=== PATIENT | male | born 1980 | race Caucasian/White ===

== ENCOUNTER 2020-12-14 22:17 | Emergency (ER) | payer SELFPAY ==
[2020-12-14 22:47] VITALS: PULSE 80; RESP 16; TEMP 36.4; O2SAT 96; BMI 31.2
--- NOTE | 2020-12-14 23:58 | W.ED.EXTPRO ---
HPI - Extremity Problem General: Chief complaint: Extremity Problem,Nontraumatic Stated complaint: L ARM NUMB Time Seen by Provider: 12/14/20 23:23 History of Present Illness: HPI Narrative: 40-year-old male presenting with left arm pain and swelling. He is an IV drug user, and use that arm to inject 2 days ago. Since that time, he has noticed increasing pain to the forearm, and wrist on the left. He says that it is warm, swollen, and painful. He has got shooting pains with numbness and tingling at times. No fever. No chills. No shortness of breath or chest discomfort. MD Complaint: extremity pain Onset (ago): hour(s) Pain Consistency: constant Location: left Quality: burning and stabbing Radiation: proximal Relieving factors: nothing Exacerbating factors: nothing Associated symptoms: Deny arthralgias, chest pain, fever(s), myalgias or short of breath Context: other Review of Systems Const: Denies: fever(s) Card: Denies: chest pain Resp: Denies: dyspnea GI: Denies: vomiting Neuro: Reports: numbness in extremities (Describes as paresthesias that come and go to the left forearm); Denies: headache(s) or confusion Physical Exam Const: COMMON NORMALS: patient oriented x3 GENERAL APPEARANCE: anxious and other (Fidgety) Chest: COMMONS NORMALS: normal inspection of the chest Resp: COMMON NORMALS: normal respiratory effort, No use of accessory muscles and clear to auscultation bilaterally AUSCULTATION: clear to auscultation bilaterally Cardio: COMMON NORMALS: regular rate, regular rhythm and No murmurs present (Cardio) RATE: regular rate RHYTHM: regular rhythm GI: COMMON NORMALS: Normal to inspection, nondistended, normoactive bowel sounds present and Soft to palpation PALPATION: Yes Soft to palpation Extremity: NARRATIVE EXTREMITY EXAM: Exam the left upper extremity reveals subjective tenderness to the left forearm and wrist. There is minimal swelling compared to the right. There is warmth. There is no redness. Range of motion of the elbow and wrist is normal. There are no signs of compartment syndrome, as the patient can actively and passively extend the fingers fully without excruciating pain. The forearm does not appear tight. station is intact Neuro: COMMON NORMALS: patient oriented x3 Course Vital Signs: Vital signs: Vital Signs Temperature 98 F 12/15/20 01:01 Pulse Rate 80 12/15/20 01:01 Respiratory Rate 16 12/15/20 01:01 Blood Pressure 146/80 12/15/20 01:01 Pulse Oximetry 99 12/15/20 01:01 MDM - Extremity (Nontraumatic) MDM Narrative: Medical decision making narrative: WBC is 6.4. CRP is negative. Hemoglobin 15. D-dimer is nondetectable in terms of an upper extremity clot. His exam is not impressive for compartment syndrome. We will treat for superficial cellulitis/thrombophlebitis Lab Data: Labs: Lab Results 12/15/20 12/15/20 12/15/20 Range/Units 00:02 00:02 00:02 WBC 6.4 (4.0-10.0) 10^3/ uL RBC 5.41 H (4.1-5.3) 10^6/u L Hgb 15.2 (11.7-16.6) g/dL Hct 44.5 (42.0-52.0) % MCV 82.3 (80-94) fL MCH 28.1 (28.0-34.0) pg MCHC 34.2 (30.0-36.0) g/dL RDW 12.5 (12.1-15.1) % Plt Count 188 (130-400) 10^3/c mm MPV 11.4 H (7.4-10.4) fL Neut % (Auto) 47.8 % Lymph % (Auto) 36.8 % [place] % (Auto) 10.1 % Eos % (Auto) 4.0 % Baso % (Auto) 0.8 % Neut # (Auto) 3.08 (1.8-7.7) 10^3/u L Lymph # (Auto) 2.4 (0.8-4.8) 10^3/u L [place] # (Auto) 0.7 (0.2-0.9) 10^3/u L Eos # (Auto) 0.3 (0.0-0.8) 10^3/u L Baso # (Auto) 0.1 (0.0-0.1) 10^3/u L Nucleated RBC % (a uto) 0 % Nucleated RBCs # 0.0 /100WBC ESR 5 (0-10) mm/hr D-Dimer <= 0.27 (0-0.59) ug/mIFE U Sodium (136-145) mmol/L Potassium (3.5-5.1) mmol/L Chloride (98-107) mmol/L Carbon Dioxide (22-29) mmol/L Anion Gap (5-19) BUN (6-20) mg/dL Creatinine (0.7-1.2) mg/dL GFR Calculation (90-130) mL/min Glucose (65-115) mg/dL Calculated Osmolal ity (285-295) mOsm/k g Lactate (0.5-2.2) mmol/L Calcium (8.5-10.5) mg/dL Total Bilirubin (0.15-1.2) mg/dL AST (0-40) U/L ALT (0-41) U/L Alkaline Phosphata se (40-130) IU/L Creatine Kinase (39-308) U/L C-Reactive Protein (0.0-4.9) mg/L Total Protein (6.6-8.7) g/dL Albumin (3.5-5.2) g/dL Globulin (1.3-4.6) g/dL 12/15/20 12/15/20 Range/Units 00:02 00:02 WBC (4.0-10.0) 10^3/ uL RBC (4.1-5.3) 10^6/u L Hgb (11.7-16.6) g/dL Hct (42.0-52.0) % MCV (80-94) fL MCH (28.0-34.0) pg MCHC (30.0-36.0) g/dL RDW (12.1-15.1) % Plt Count (130-400) 10^3/c mm MPV (7.4-10.4) fL Neut % (Auto) % Lymph % (Auto) % [place] % (Auto) % Eos % (Auto) % Baso % (Auto) % Neut # (Auto) (1.8-7.7) 10^3/u L Lymph # (Auto) (0.8-4.8) 10^3/u L [place] # (Auto) (0.2-0.9) 10^3/u L Eos # (Auto) (0.0-0.8) 10^3/u L Baso # (Auto) (0.0-0.1) 10^3/u L Nucleated RBC % (a uto) % Nucleated RBCs # /100WBC ESR (0-10) mm/hr D-Dimer (0-0.59) ug/mIFE U Sodium 141 (136-145) mmol/L Potassium 3.5 (3.5-5.1) mmol/L Chloride 107 (98-107) mmol/L Carbon Dioxide 24 (22-29) mmol/L Anion Gap 13.5 (5-19) BUN 8 (6-20) mg/dL Creatinine 0.7 (0.7-1.2) mg/dL GFR Calculation 125.5 (90-130) mL/min Glucose 105 (65-115) mg/dL Calculated Osmolal ity 291 (285-295) mOsm/k g Lactate 1.5 (0.5-2.2) mmol/L Calcium 8.3 L (8.5-10.5) mg/dL Total Bilirubin 0.6 (0.15-1.2) mg/dL AST 106 H (0-40) U/L ALT 246 H (0-41) U/L Alkaline Phosphata se 90 (40-130) IU/L Creatine Kinase 340 H* (39-308) U/L C-Reactive Protein 3.5 (0.0-4.9) mg/L Total Protein 6.7 (6.6-8.7) g/dL Albumin 4.3 (3.5-5.2) g/dL Globulin 2.4 (1.3-4.6) g/dL Discharge Plan Discharge Patient Disposition: Home Clinical Impression: Superficial thrombophlebitis Qualifiers: Superficial thrombophlebitis-Involved body area: upper extremity Laterality: left Qualified Code(s): I80.8 - Phlebitis and thrombophlebitis of other sites Cellulitis Qualifiers: Site of cellulitis: extremity Site of cellulitis of extremity: upper extremity Laterality: left Qualified Code(s): L03.114 - Cellulitis of left upper limb Condition: Stable Prescriptions: New aspirin 325 mg tablet 325 mg PO DAILY Qty: 10 RF: 0 doxycycline hyclate 100 mg capsule 100 mg PO BID 10 Days Qty: 20 RF: 0 Discharge Orders: Discharge ED (Routine); Ordered 12/15/20 Ordered By: Daryl Healy Patient Instructions: Cellulitis (ED), Superficial Thrombophlebitis (ED) Activity Restrictions/Additional Instructions: Avoid using that arm to inject. Return for fever greater than 100, worsening pain or swelling, excruciating pain with straightening your fingers, streaking redness up your arm, other concerning symptoms Coding Level of Care Code ED [employer] Supervisor for Luis Angel Fwd Exam Detailed
[2020-12-15] MEDS: ketorolac 30 mg/mL INJ IVP (00:03)
[2020-12-15] MEDS: haloperidol inj 5 mg/mL INJ 1 mL IVP (00:04)
[2020-12-15 00:14] LABS: Basophils # 0.1 10^3/uL (0.0-0.1); Basophils % 0.8 %; Eosinophils # 0.3 10^3/uL (0.0-0.8); Hematocrit 44.5 % (42.0-52.0); Hemoglobin 15.2 g/dL (11.7-16.6); Lymphocytes # 2.4 10^3/uL (0.8-4.8); Lymphocytes % 36.8 %; Mean Corpuscular HGB Conc 34.2 g/dL (30.0-36.0); Mean Corpuscular Hemoglobin 28.1 pg (28.0-34.0); Mean Corpuscular Volume 82.3 fL (80-94); Mean Platelet Volume 11.4 fL (7.4-10.4); Monocytes # 0.7 10^3/uL (0.2-0.9); Monocytes % 10.1 %; Neutrophils # 3.08 10^3/uL (1.8-7.7); Neutrophils % 47.8 %; Nucleated Red Blood Cells % 0 %; Platelet Count 188 10^3/cmm (130-400); Red Blood Count 5.41 10^6/uL (4.1-5.3); Red Cell Distribution Width 12.5 % (12.1-15.1); White Blood Count 6.4 10^3/uL (4.0-10.0)
[2020-12-15 00:29] LABS: Alanine Aminotransferase 246 U/L (0-41); Albumin Level 4.3 g/dL (3.5-5.2); Alkaline Phosphatase 90 IU/L (40-130); Anion Gap 13.5 (5-19); Aspartate Amino Transferase 106 U/L (0-40); Blood Urea Nitrogen 8 mg/dL (6-20); C Reactive Protein 3.5 mg/L (0.0-4.9); Calcium 8.3 mg/dL (8.5-10.5); Carbon Dioxide 24 mmol/L (22-29); Chloride 107 mmol/L (98-107); Globulin 2.4 g/dL (1.3-4.6); Glomerular Filtration Rate 125.5 mL/min (90-130); Glucose 105 mg/dL (65-115); Lactate (Lactic Acid level) 1.5 mmol/L (0.5-2.2); Osmolality Calculated 291 mOsm/kg (285-295); Potassium 3.5 mmol/L (3.5-5.1); Sodium 141 mmol/L (136-145); Total Bilirubin 0.6 mg/dL (0.15-1.2); Total Protein 6.7 g/dL (6.6-8.7)
[2020-12-15 00:32] LABS: D Dimer <= 0.27 ug/mIFEU (0-0.59)
[2020-12-15 00:39] LABS: Creatine Phosphokinase 340 U/L (39-308)
[2020-12-15 00:57] LABS: Erythrocyte Sedimentation Rate 5 mm/hr (0-10)
[2020-12-15] MEDS: doxycycline 100 mg Tablet PO (00:57)
[2020-12-15] MEDS: dexamethasone 4 mg/mL INJ 8 MG IVP (00:57)
[2020-12-15 01:01] VITALS: BP 146/80; PULSE 80; RESP 16; TEMP 36.6; O2SAT 99
== END 2020-12-15 01:06 | disposition home or self-care (01) ==
PROVIDERS: Emergency Provider Emergency Medicine
DX: I80.8 Phlebitis and thrombophlebitis of other sites (principal); L03.114 Cellulitis of left upper limb
CPT/HCPCS: 80053; 82550; 83605; 85025; 85378; 85651; 86140; 96374; 96375; 99283; J1100; J1630; J1885

== ENCOUNTER 2022-11-21 15:26 | Emergency (ER) | payer MEDICAID, SELFPAY ==
[2022-11-21 15:35] VITALS: BMI 27.5
[2022-11-21 15:44] VITALS: BP 110/70; PULSE 137; RESP 20; TEMP 35.9; O2SAT 97
--- NOTE | 2022-11-21 16:20 | XRR_ITS ---
PROCEDURE INFORMATION: Exam: XR Abdomen Exam date and time: 11/21/2022 4:26 PM Age: 42 years old Clinical indication: Abdominal pain; Localized; Left upper quadrant (luq); Additional info: Luq abd pain TECHNIQUE: Imaging protocol: Radiologic exam of the abdomen. Views: Frontal supine view of the abdomen. 1 View. COMPARISON: No relevant prior studies available. FINDINGS: Gastrointestinal tract: Normal. No bowel dilation. Bones/joints: Unremarkable. XR/XR abdomen 1V* [id number] IMPRESSION: No acute findings.
--- NOTE | 2022-11-21 16:20 | XRR_ITS ---
PROCEDURE INFORMATION: Exam: XR Chest Exam date and time: 11/21/2022 4:26 PM Age: 42 years old Clinical indication: Pain; Left-sided; Additional info: Left lower lung pain TECHNIQUE: Imaging protocol: Radiologic exam of the chest. Views: 1 view. COMPARISON: No relevant prior studies available. FINDINGS: Lungs: Unremarkable. No consolidation. Pleural spaces: Unremarkable. No pleural effusion. No pneumothorax. Heart/Mediastinum: Unremarkable. No cardiomegaly. Bones/joints: Unremarkable. XR/XR chest 1V portable [id number] IMPRESSION: No acute findings.
[2022-11-21 16:31] LABS: Basophils % 0.2 %; Eosinophils % 0.1 %; Hematocrit 39.7 % (42.0-52.0); Hemoglobin 13.9 g/dL (11.7-16.6); Lymphocytes # 0.6 10^3/uL (0.8-4.8); Mean Corpuscular Hemoglobin 29.6 pg (28.0-34.0); Mean Corpuscular Volume 84.6 fl (80-94); Mean Platelet Volume 11.8 fL (7.4-10.4); Monocytes % 7.2 %; Neutrophils # 12.37 10^3/uL (1.8-7.7); Neutrophils % 87.9 %; Nucleated Red Blood Cells % 0 %; Platelet Count 144 10^3/cmm (130-400); Red Blood Count 4.69 10^6/uL (4.1-5.3); Red Cell Distribution Width 12.6 % (12.1-15.1); White Blood Count 14.1 10^3/uL (4.0-10.0)
[2022-11-21] MEDS: sodium chloride 0.9% 1,000 ML 999 ML IV ×2 (16:43→17:46)
[2022-11-21 16:45] LABS: Alanine Aminotransferase 84 U/L (0-41); Alkaline Phosphatase 57 U/L (40-130); Anion Gap 16.5 (5-19); Aspartate Amino Transferase 38 U/L (0-40); Blood Urea Nitrogen 24 mg/dL (6-20); Calcium 8.2 mg/dL (8.5-10.5); Carbon Dioxide 20 mmol/L (22-29); Chloride 91 mmol/L (98-107); Globulin 2.5 g/dL (1.3-4.6); Glomerular Filtration Rate 82.3 mL/min (90-130); Glucose 488 mg/dL (65-115); Lipase 23 U/L (13-60); Magnesium 1.1 mg/dL (1.7-2.3); Osmolality Calculated 284 mOsm/kg (285-295); Potassium 3.5 mmol/L (3.5-5.1); Sodium 124 mmol/L (136-145); Total Bilirubin 2.4 mg/dL (0.15-1.2); Total Protein 6.5 g/dL (6.6-8.7)
--- NOTE | 2022-11-21 16:54 | W.ED.ABDPA2 ---
Documented by User: Dev Rossi DO 11/21/22 16:58 HPI - Abdominal Pain General: Chief Complaint: Abdominal Pain Stated Complaint: LEFT UPPER ABD PAIN Time Seen by Provider: 11/21/22 15:55 History of Present Illness: Patient presents to the ER with complaints of left upper quadrant abdominal pain that radiates into his back. Patient is pressured fast speech he is tachypneic and breathing he is constantly fidgeting and he admits to meth use 24 hours ago. MD elicited complaint: abdominal pain Pertinent past history: other (Admitted meth user) Onset (ago): hour(s) Pain Consistency: constant Location: LUQ Severity: mild Quality: aching Radiation: L flank Migration to: no migration Exacerbating factors: nothing Relieving factors: nothing Associated Symptoms: Denies chills, diarrhea, dysuria, fever(s), nausea and vomiting Review of Systems General: Reports: 10 or more systems reviewed and unremarkable except in HPI and below Const: Denies: fever(s) or chills Eyes: Denies: change in vision or photophobia ENMT: Denies: throat pain or odynophagia Card: Denies: chest pain, palpitations or irregular heart rhythm Resp: Denies: dyspnea, productive cough or non-productive cough GI: Reports: abdominal pain; Denies: nausea, vomiting or diarrhea : Reports: flank pain; Denies: difficulty urinating or dysuria Musc: Denies: neck pain Skin/Breast: Denies: rash or pruritus Physical Exam Const: COMMON NORMALS: no acute distress, average body habitus, patient oriented x3, no limitations, healthy appearing, alert and well nourished HENMT: COMMON NORMALS: normocephalic, atraumatic, hearing grossly normal bilaterally, external ears normal, Normal external nose present and moist oral mucous membranes HEAD & SCALP: normocephalic and atraumatic NOSE: Normal external nose present EXTERNAL EAR: Yes external ears normal Eye: COMMON NORMALS: Equal, round and reactive pupils present, EOMs intact bilaterally, conjunctivae normal and no scleral icterus CONJUNCTIVA: Yes conjunctivae normal PUPIL: Yes Equal, round and reactive pupils present Neck/C-Spine: COMMON NORMALS: full ROM, no lymphadenopathy, supple, no meningeal signs, no JVD and Thyroid normal THYROID: Thyroid normal Lymph: LYMPHATIC: no lymphadenopathy noted Chest: COMMONS NORMALS: normal inspection of the chest and normal palpation of entire chest wall Resp: COMMON NORMALS: normal respiratory effort, No retractions, No use of accessory muscles and clear to auscultation bilaterally AUSCULTATION: clear to auscultation bilaterally Cardio: COMMON NORMALS: no JVD, regular rate, regular rhythm, S1 normal heart sound present, S2 normal heart sound present, No gallops present (Cardio), No clicks present (Cardio) and No murmurs present (Cardio) RATE: regular rate RHYTHM: regular rhythm HEART SOUNDS: S1 normal heart sound present and S2 normal heart sound present GI: COMMON NORMALS: Normal to inspection, nondistended, normoactive bowel sounds present, Soft to palpation, non-tender, No hepatosplenomegaly present and no masses PALPATION: Yes Soft to palpation and Yes No hepatosplenomegaly present : COMMON NORMALS: Yes no CVA tenderness BLADDER/KIDNEY EXAM: Yes no CVA tenderness Back/Pelvis: COMMON NORMALS: no CVA tenderness Neuro: COMMON NORMALS: patient oriented x3 SENSORIUM/ORIENTATION: Yes alert MENINGEAL SIGNS: Yes no meningeal signs Course Vital Signs: Vital signs: Vital Signs Temperature 96.6 F L 11/21/22 15:44 Pulse Rate 137 H 11/21/22 15:44 Respiratory Rate 20 H 11/21/22 15:44 Blood Pressure 110/70 11/21/22 15:44 Pulse Oximetry 97 11/21/22 15:44 Oxygen Delivery Me thod Room Air 11/21/22 15:44 MDM - Abdominal Pain Differential Diagnosis Likely abdominal pain; Unlikely acute appendicitis, constipation, diverticulitis, pancreatitis or small bowel obstruction Medical Records I reviewed the patient's medical records. Lab Data I reviewed the patient's lab results. 11/21/22 16:03 11/21/22 16:03 Labs/Radiology: Radiology Impressions Abdomen X-Ray 11/21/22 16:20 IMPRESSION: No acute findings. Chest X-Ray 11/21/22 16:20 IMPRESSION: No acute findings. Abdomen/Pelvis CT 11/21/22 17:04 IMPRESSION: 1. Left lower lobe pneumonia. 2. Hepatomegaly no focal hepatic lesions. 3. Otherwise negative examination Laboratory Results WBC 14.1 10^3/uL (4.0-10.0) H 11/21/22 16:03 RBC 4.69 10^6/uL (4.1-5.3) 11/21/22 16:03 Hgb 13.9 g/dL (11.7-16.6) 11/21/22 16:03 Hct 39.7 % (42.0-52.0) L 11/21/22 16:03 MCV 84.6 fl (80-94) 11/21/22 16:03 MCH 29.6 pg (28.0-34.0) 11/21/22 16:03 MCHC 35.0 g/dL (30.0-36.0) 11/21/22 16:03 RDW 12.6 % (12.1-15.1) 11/21/22 16:03 Plt Count 144 10^3/cmm (130-400) 11/21/22 16:03 MPV 11.8 fL (7.4-10.4) H 11/21/22 16:03 Neut % (Auto) 87.9 % 11/21/22 16:03 Lymph % (Auto) 4.0 % 11/21/22 16:03 [place] % (Auto) 7.2 % 11/21/22 16:03 Eos % (Auto) 0.1 % 11/21/22 16:03 Baso % (Auto) 0.2 % 11/21/22 16:03 Neut # (Auto) 12.37 10^3/uL (1.8-7.7) H 11/21/22 16:03 Lymph # (Auto) 0.6 10^3/uL (0.8-4.8) L 11/21/22 16:03 [place] # (Auto) 1.0 10^3/uL (0.2-0.9) H 11/21/22 16:03 Eos # (Auto) 0.0 10^3/uL (0.0-0.8) 11/21/22 16:03 Baso # (Auto) 0.0 10^3/uL (0.0-0.1) 11/21/22 16:03 Nucleated RBC % (auto) 0 % 11/21/22 16:03 Nucleated RBCs # 0.0 /100WBC 11/21/22 16:03 Sodium 124 mmol/L (136-145) L 11/21/22 16:03 Potassium 3.5 mmol/L (3.5-5.1) 11/21/22 16:03 Chloride 91 mmol/L (98-107) L 11/21/22 16:03 Carbon Dioxide 20 mmol/L (22-29) L 11/21/22 16:03 Anion Gap 16.5 (5-19) 11/21/22 16:03 BUN 24 mg/dL (6-20) H 11/21/22 16:03 Creatinine 1.0 mg/dL (0.7-1.2) 11/21/22 16:03 GFR Calculation 82.3 mL/min (90-130) L 11/21/22 16:03 Glucose 488 mg/dL (65-115) H 11/21/22 16:03 POC Glucose 289 mg/dL (70-110) H 11/21/22 18:40 Calculated Osmolality 284 mOsm/kg (285-295) L 11/21/22 16:03 Calcium 8.2 mg/dL (8.5-10.5) L 11/21/22 16:03 Magnesium 1.1 mg/dL (1.7-2.3) L 11/21/22 16:03 Total Bilirubin 2.4 mg/dL (0.15-1.2) H 11/21/22 16:03 AST 38 U/L (0-40) 11/21/22 16:03 ALT 84 U/L (0-41) H 11/21/22 16:03 Alkaline Phosphatase 57 U/L (40-130) 11/21/22 16:03 Total Protein 6.5 g/dL (6.6-8.7) L 11/21/22 16:03 Albumin 4.0 g/dL (3.5-5.2) 11/21/22 16:03 Globulin 2.5 g/dL (1.3-4.6) 11/21/22 16:03 Lipase 23 U/L (13-60) 11/21/22 16:03 Discharge Plan Discharge Patient Disposition: Home Clinical Impression: Acute hyperglycemia Pneumonia Qualifiers: Pneumonia type: due to unspecified organism Laterality: left Lung location: lower lobe of lung Qualified Code(s): J18.9 - Pneumonia, unspecified organism Condition: Stable Prescriptions: New azithromycin 250 mg tablet See Rx Instructions .ROUTE .COMPLEX Qty: 6 0RF Rx Instructions: For 250 mg dose pack: take 500 mg today (day 1), then 250 mg for 4 days (days 2-5) cefdinir 300 mg capsule 300 mg PO BID 7 Days Qty: 14 0RF glipizide 10 mg tablet 10 mg PO DAILY Qty: 30 0RF ketorolac 10 mg tablet 10 mg PO TID PRN (Reason: pain) Qty: 10 0RF No Action clindamycin HCl 300 mg capsule 600 mg PO QID 7 Days Qty: 56 0RF aspirin 325 mg tablet 325 mg PO DAILY Qty: 10 0RF Discharge Orders: Discharge ED (Routine); Ordered 11/21/22 Ordered By: Daryl Healy Patient Instructions: Hyperglycemia, Pneumonia (ED), Opioid Safety, Pain Management Activity Restrictions/Additional Instructions: Return for worsening shortness of breath, fever despite 2-3 doses of antibiotics, inability to control blood sugar, any other concerning symptoms Check your blood sugar at least twice daily. Take new medication as directed. If you notice that your blood pressure is sinking, you may come off the glipizide. Follow-up with your doctor. Coding Level of Care Code ED Is Architect for Chg Fwd Documented by User: Daryl Healy, 11/21/22 19:44 HPI - Abdominal Pain General: Chief Complaint: Abdominal Pain Stated Complaint: LEFT UPPER ABD PAIN Time Seen by Provider: 11/21/22 15:55 Course Vital Signs: Vital signs: Vital Signs Temperature 96.6 F L 11/21/22 15:44 Pulse Rate 137 H 11/21/22 15:44 Respiratory Rate 20 H 11/21/22 15:44 Blood Pressure 110/70 11/21/22 15:44 Pulse Oximetry 97 11/21/22 15:44 Oxygen Delivery Me thod Room Air 11/21/22 15:44 MDM - Abdominal Pain Medical Decision Making 42-year-old male checked out to me by the previous physician at shift change. He complained of left upper quadrant pain. His white blood cell count is 14. Bicarbonate level is 20. Sugar was 500. It is down to 289 currently after IV insulin and fluid. He is given Toradol, cefdinir, and azithromycin. His chest x-ray shows a left lower lobe pneumonia likely the cause of his left-sided flank pain. He will be treated with antibiotics, Toradol. For the blood sugar elevation, he has been taking his metformin he says. Sugar had been well under control with blood sugars in the 120s and 140s he says I am sure the pneumonia is causing an elevation. With reduction in his sugar here, he will be placed on glipizide, and asked to take his blood sugar at least twice a day. He may come off of his glipizide should sugars return to more normal parameters. To return for worsening problems. He is given 1 Percocet, as he continues to complain of pain, and is asking for more pain medication. It was relayed to him that narcotics do not really help pleuritic chest pain well, and that anti-inflammatories would be more appropriate. Lab Data 11/21/22 16:03 11/21/22 16:03 Labs/Radiology: Radiology Impressions Abdomen X-Ray 11/21/22 16:20 IMPRESSION: No acute findings. Chest X-Ray 11/21/22 16:20 IMPRESSION: No acute findings. Abdomen/Pelvis CT 11/21/22 17:04 IMPRESSION: 1. Left lower lobe pneumonia. 2. Hepatomegaly no focal hepatic lesions. 3. Otherwise negative examination Laboratory Results WBC 14.1 10^3/uL (4.0-10.0) H 11/21/22 16:03 RBC 4.69 10^6/uL (4.1-5.3) 11/21/22 16:03 Hgb 13.9 g/dL (11.7-16.6) 11/21/22 16:03 Hct 39.7 % (42.0-52.0) L 11/21/22 16:03 MCV 84.6 fl (80-94) 11/21/22 16:03 MCH 29.6 pg (28.0-34.0) 11/21/22 16:03 MCHC 35.0 g/dL (30.0-36.0) 11/21/22 16:03 RDW 12.6 % (12.1-15.1) 11/21/22 16:03 Plt Count 144 10^3/cmm (130-400) 11/21/22 16:03 MPV 11.8 fL (7.4-10.4) H 11/21/22 16:03 Neut % (Auto) 87.9 % 11/21/22 16:03 Lymph % (Auto) 4.0 % 11/21/22 16:03 [place] % (Auto) 7.2 % 11/21/22 16:03 Eos % (Auto) 0.1 % 11/21/22 16:03 Baso % (Auto) 0.2 % 11/21/22 16:03 Neut # (Auto) 12.37 10^3/uL (1.8-7.7) H 11/21/22 16:03 Lymph # (Auto) 0.6 10^3/uL (0.8-4.8) L 11/21/22 16:03 [place] # (Auto) 1.0 10^3/uL (0.2-0.9) H 11/21/22 16:03 Eos # (Auto) 0.0 10^3/uL (0.0-0.8) 11/21/22 16:03 Baso # (Auto) 0.0 10^3/uL (0.0-0.1) 11/21/22 16:03 Nucleated RBC % (auto) 0 % 11/21/22 16:03 Nucleated RBCs # 0.0 /100WBC 11/21/22 16:03 Sodium 124 mmol/L (136-145) L 11/21/22 16:03 Potassium 3.5 mmol/L (3.5-5.1) 11/21/22 16:03 Chloride 91 mmol/L (98-107) L 11/21/22 16:03 Carbon Dioxide 20 mmol/L (22-29) L 11/21/22 16:03 Anion Gap 16.5 (5-19) 11/21/22 16:03 BUN 24 mg/dL (6-20) H 11/21/22 16:03 Creatinine 1.0 mg/dL (0.7-1.2) 11/21/22 16:03 GFR Calculation 82.3 mL/min (90-130) L 11/21/22 16:03 Glucose 488 mg/dL (65-115) H 11/21/22 16:03 POC Glucose 289 mg/dL (70-110) H 11/21/22 18:40 Calculated Osmolality 284 mOsm/kg (285-295) L 11/21/22 16:03 Calcium 8.2 mg/dL (8.5-10.5) L 11/21/22 16:03 Magnesium 1.1 mg/dL (1.7-2.3) L 11/21/22 16:03 Total Bilirubin 2.4 mg/dL (0.15-1.2) H 11/21/22 16:03 AST 38 U/L (0-40) 11/21/22 16:03 ALT 84 U/L (0-41) H 11/21/22 16:03 Alkaline Phosphatase 57 U/L (40-130) 11/21/22 16:03 Total Protein 6.5 g/dL (6.6-8.7) L 11/21/22 16:03 Albumin 4.0 g/dL (3.5-5.2) 11/21/22 16:03 Globulin 2.5 g/dL (1.3-4.6) 11/21/22 16:03 Lipase 23 U/L (13-60) 11/21/22 16:03 Discharge Plan Discharge Patient Disposition: Home Clinical Impression: Acute hyperglycemia Pneumonia Qualifiers: Pneumonia type: due to unspecified organism Laterality: left Lung location: lower lobe of lung Qualified Code(s): J18.9 - Pneumonia, unspecified organism Condition: Stable Prescriptions: New azithromycin 250 mg tablet See Rx Instructions .ROUTE .COMPLEX Qty: 6 0RF Rx Instructions: For 250 mg dose pack: take 500 mg today (day 1), then 250 mg for 4 days (days 2-5) cefdinir 300 mg capsule 300 mg PO BID 7 Days Qty: 14 0RF glipizide 10 mg tablet 10 mg PO DAILY Qty: 30 0RF ketorolac 10 mg tablet 10 mg PO TID PRN (Reason: pain) Qty: 10 0RF No Action clindamycin HCl 300 mg capsule 600 mg PO QID 7 Days Qty: 56 0RF aspirin 325 mg tablet 325 mg PO DAILY Qty: 10 0RF Discharge Orders: Discharge ED (Routine); Ordered 11/21/22 Ordered By: Daryl Healy Patient Instructions: Hyperglycemia, Pneumonia (ED), Opioid Safety, Pain Management Activity Restrictions/Additional Instructions: Return for worsening shortness of breath, fever despite 2-3 doses of antibiotics, inability to control blood sugar, any other concerning symptoms Check your blood sugar at least twice daily. Take new medication as directed. If you notice that your blood pressure is sinking, you may come off the glipizide. Follow-up with your doctor. Coding Level of Care Code ED Is Architect for Luis Angel Yan
--- NOTE | 2022-11-21 17:04 | CTR_ITS ---
PROCEDURE INFORMATION: Exam: CT Abdomen And Pelvis With Contrast Exam date and time: 11/21/2022 5:15 PM Age: 42 years old Clinical indication: Abdominal pain; Additional info: Luq abd pain, elevated bilirubin TECHNIQUE: Imaging protocol: Computed tomography of the abdomen and pelvis with contrast. Radiation optimization: All CT scans at this facility use at least one of these dose optimization techniques: automated exposure control; mA and/or kV adjustment per patient size (includes targeted exams where dose is matched to clinical indication); or iterative reconstruction. Contrast material: OMNI 350; Contrast volume: 100 ml; Contrast route: INTRAVENOUS (IV); REPORTING DATA: Count of CT and Cardiac NM exams in prior 12 months: This patient has received 0 known CTs and 0 known cardiac nuclear medicine studies in the 12 months prior to the current study. COMPARISON: CR (ABDOMEN, ) 11/21/2022 4:26 PM RADIATION DOSE METRICS: Total DLP (mGy-cm): 855.03 FINDINGS: Chest: Left lower lobe posterior parenchymal densities consistent with pneumonia Liver: Normal. No mass. Hepatomegaly the liver span is 23 cm Gallbladder and bile ducts: Normal. No calcified stones. No ductal dilation. Pancreas: Normal. No ductal dilation. Spleen: Normal. No splenomegaly. Adrenal glands: Normal. No mass. Kidneys and ureters: Normal. No hydronephrosis. Stomach and bowel: Unremarkable. No obstruction. No mucosal thickening. Appendix: No evidence of appendicitis. Intraperitoneal space: Unremarkable. No free air. No significant fluid collection. Vasculature: Unremarkable. No abdominal aortic aneurysm. Lymph nodes: Unremarkable. No enlarged lymph nodes. Urinary bladder: Unremarkable as visualized. Reproductive: Unremarkable as visualized. Bones/joints: Unremarkable. No acute fracture. Soft tissues: Unremarkable. CT/CT abdomen pelvis w con* [id number] IMPRESSION: 1. Left lower lobe pneumonia. 2. Hepatomegaly no focal hepatic lesions. 3. Otherwise negative examination
[2022-11-21] MEDS: iohexol 350 mg/mL 500 mL Btl (per mL) IV (17:37)
[2022-11-21 17:42] LABS: Glucose Point of Care 500 mg/dL (70-110)
[2022-11-21] MEDS: insulin regular-human 100 units/1 mL 10 UNIT IVP (17:45)
[2022-11-21] MEDS: magnesium sulfate premix 2 GM/50 ML PIGGYBACK IV (17:45)
[2022-11-21 18:45] LABS: Glucose Point of Care 289 mg/dL (70-110)
[2022-11-21 19:01] VITALS: PULSE 124; O2SAT 95
[2022-11-21] MEDS: azithromycin 250 mg Tablet 500 MG PO (19:26)
[2022-11-21] MEDS: cefdinir 300 MG CAPSULE PO (19:26)
[2022-11-21] MEDS: ketorolac 30 mg/mL INJ IVP (19:26)
[2022-11-21 19:41] VITALS: RESP 16
[2022-11-21] MEDS: oxyCODONE-APAP 5-325 mg Tablet 1 TAB PO (19:41)
--- NOTE | 2022-11-26 11:14 | DCPLANNER ---
clinical application manager called patient due to no primary care physician - patient declines at this time.
== END 2022-11-21 19:53 | disposition home or self-care (01) ==
PROVIDERS: Emergency Medicine; Emergency Provider Emergency Medicine
DX: J18.9 Pneumonia, unspecified organism (principal); R73.9 Hyperglycemia, unspecified; Z79.84 Long term (current) use of oral hypoglycemic drugs
CPT/HCPCS: 36416; 71045; 74018; 74177; 80053; 82962; 83690; 83735; 85025; 96361; 96365; 96375; 99285; J1815; J1885; J3475; J7030; Q0144; Q9967

== ENCOUNTER → 2022-12-30 15:10 | Outpatient (BNVA) | payer MEDICAID, SELFPAY | PROVIDERS: Visit Provider Nurse Practitioner Family | DX: E11.69 Type 2 diabetes mellitus with other specified complication (principal); R73.9 Hyperglycemia, unspecified; R07.89 Other chest pain; G89.18 Other acute postprocedural pain | CPT/HCPCS: 82962 ==